=== PATIENT | female | born 1950 ===

== ENCOUNTER 2018-05-07 08:18 | Emergency (ER) | payer MEDICARE, BC ==
[2018-05-07] MEDS ORDERED: traMADol TAB* 50 MG PO ONE (08:34)
--- NOTE | 2018-05-07 09:08 | RAD ---
Indication: Back injury after fall. CT of the lumbar spine was obtained in the axial plane. Sagittal and coronal reconstructed images were obtained. Diffuse osteopenia is noted. The lumbar spine demonstrate vertebral bodies to be normal in height and alignment. No compression fracture is noted. There is compression fracture of the superior aspect of the T12 vertebra with approximately 25% compression. A small retropulsed fragment is noted encroaching upon the spinal canal with retropulsion of 4 mm of the posterior bony fragment. A small amount of perivertebral hematoma is noted. At L2-L3 there is broad-based protrusion flattening the thecal sac. No central or foraminal stenosis is noted. Minimal broad-based effusions are noted at L3-L4, L4-L5 and L5-S1 without definite evidence of spinal stenosis or foraminal stenosis. IMPRESSION: Compression fracture superior endplate of T12 with comminuted fragments. The compression is less than 25%. There is a retropulsed fragment of approximately 4 mm of the posterior margin of the vertebral body superiorly at T12.
--- NOTE | 2018-05-07 09:12 | RAD ---
Indication: Back pain after fall. CT of the thoracic spine was obtained in the axial plane. Sagittal and coronal reconstructed images were obtained. Again noted is a less than 25% compression fracture of the superior endplate of T12. Again noted is 4 mm retropulsion of the superior posterior margin of the vertebral body to the thecal sac. The remainder of the vertebra demonstrates normal height. Multiple levels of degenerative disc disease is noted. No other fractures are noted. The lung ku demonstrate dependent changes without focal nodules or masses. IMPRESSION: Again noted is compression fracture T12 vertebra with retropulsed fragment of approximately 4 mm in the superior endplate. The remainder of the thoracic spine demonstrates no evidence of fracture.
[2018-05-07] MEDS ORDERED: Hydrocodone/Acetamin 10/325 1 TAB PO ONE (10:35)
[2018-05-07] MEDS ORDERED: HYDROcodone/ACETAMIN 5-325 MG* 1 TAB PO ONE (10:43)
[2018-05-07 11:02] VITALS: BP 115/68
--- NOTE | 2018-05-07 11:59 | ED ---
Back Pain - HPI Summary HPI Summary: Patient is a 67-year-old female presenting to the ED with mid back pain after falling from a top bunk in an camper this morning. History of sciatica. Patient is visiting from [place]. She did not take any medications [employer]ORNING [employer]. Denies any numbness or tingling in the bilateral lower extremities. Denies any bladder or bowel dysfunction. Denies foot drop. She states she has been otherwise feeling well. Fall occurred approximately 30 minutes MORNING [employer]. She did not ambulate since arriving. - History of Current Complaint Chief Complaint: EDBackInjuryPain Stated Complaint: FELL BACK PAIN Time Seen by Provider: 05/07/18 08:21 Hx Obtained From: Patient Onset/Duration: Sudden Onset Severity Initially: Moderate Severity Currently: Moderate Pain Intensity: 8 Pain Scale Used: 0-10 Numeric Character: Aching Alleviating Symptom(s): Rest, Position Associated Signs And Symptoms: Positive: Other - step off - Risk Factors AAA Risk Factors: Negative TAD Risk Factors: Negative Cauda Equina Risk Factors: Negative Epidural Abscess Risk Factors: Negative - Allergies/Home Medications Allergies/Adverse Reactions: Allergies Allergy/AdvReac Type Severity Reaction Status Date / Time iodine Allergy Unknown Verified 05/07/18 08:30 Reaction Details shellfish derived Allergy Unknown Verified 05/07/18 08:30 Reaction Details Home Medications: Home Medications Calcium Carbonate [Calcium] 500 mg PO DAILY 05/07/18 [History Confirmed 05/07/18 ] amLODIPine TAB* [Norvasc 5 mg TAB*] 5 mg PO DAILY 05/07/18 [History Confirmed ] PMH/Surg Hx/FS Hx/Imm Hx Previously Healthy: Yes - Immunization History Hx Pertussis Vaccination: No Immunizations Up to Date: Unable to Obtain/Confirm Infectious Disease History: No Infectious Disease History: Denies: Traveled Outside the [place] in Last 30 Days - Social History Occupation: Unemployed Lives: With Family Alcohol Use: None Hx Substance Use: No Substance Use Type: Reports: None Hx Tobacco Use: No Smoking Status (MU): Never Smoked Tobacco Review of Systems Constitutional: Negative Negative: Fever, Chills, Skin Diaphoresis Negative: Palpitations, Chest Pain Negative: Shortness Of Breath, Cough Gastrointestinal: Negative Negative: Abdominal Pain, Vomiting, Diarrhea, Nausea Genitourinary: Negative Positive: no symptoms reported, see HPI Positive: Arthralgia. Negative: Myalgia, Decreased ROM, Edema Skin: Negative Neurological: Negative All Other Systems Reviewed And Are Negative: Yes Physical Exam Triage Information Reviewed: Yes Vital Signs On Initial Exam: Initial Vitals Pulse BP Pulse Ox 80 158/87 96 05/07/18 08:27 05/07/18 08:27 05/07/18 08:27 Vital Signs Reviewed: Yes Appearance: Positive: Well-Appearing, Well-Nourished Skin: Positive: Warm, Skin Color Reflects Adequate Perfusion Eyes: Positive: EOMI, JAMES, Conjunctiva Clear Neck: Positive: Supple, No Lymphadenopathy Respiratory/Lung Sounds: Positive: Clear to Auscultation, Breath Sounds Present Cardiovascular: Positive: RRR, Pulses are Symmetrical in both Upper and Lower Extremities Musculoskeletal: Positive: Pain @ - t12 Neurological: Positive: Sensory/Motor Intact, Alert, Oriented to Person Place, Time, Reflexes Intact, Normal Gait, Speech Normal Psychiatric: Positive: Normal, Affect/Mood Appropriate AVPU Assessment: Alert - is Diagnostics - Vital Signs Vital Signs Temp Pulse Resp BP Pulse Ox 05/07/18 11:01 98.7 F 81 16 115/68 98 05/07/18 09:28 81 115/69 97 05/07/18 09:01 79 100 05/07/18 08:59 81 129/87 97 05/07/18 08:37 80 97 05/07/18 08:28 98.2 F 81 16 158/87 97 05/07/18 08:27 80 158/87 96 - Laboratory Lab Statement: Any lab studies that have been ordered have been reviewed, and results considered in the medical decision making process. Back Pain Course/Dx - Course Course Of Treatment: During the course of treatment, the patient's evaluated for mid back pain. Step-off noted at T11-T12. No history of prior back surgeries. CT lumbar and thoracic spine obtained: IMPRESSION: Compression fracture superior endplate of T12 with comminuted fragments. The. compression is less than 25%. There is a retropulsed fragment of approximately 4 mm of the. posterior margin of the vertebral body superiorly at T12. She is given tramadol on arrival with some mild amount of relief. Patient is able to ambulate, however with pain. She's been given 2 hydrocodone's with significant improvement. Family is at bedside and is willing to take care of her. They will follow up with neurosurgery in [place] early next week. She is given a 5 day supply of pain control for at home as well as encouraged to use moist heat. - Diagnoses Differential Diagnosis/HQI/PQRI: Positive: Cauda Equina Syndrome, Compressive Cord Syndrome, Herniated Disc, Strain, Sprain Provider Diagnoses: T12 compression fracture Discharge - Sign-Out/Discharge Documenting (check all that apply): Patient Departure - Discharge Plan Condition: Stable Disposition: HOME Prescriptions: oxyCODONE/Acetamin 10/325(NF) [Percocet 10/325 (NF)] 1 tab PO Q6H #20 tab MDD 4 Patient Education Materials: Vertebral Compression Fracture (ED) Referrals: No Primary Care Phys,NOPCP [Primary Care Provider] - Additional Instructions: Please follow up with your neurosurgeon Hydrocodone/acetaminophen up to every 6 hours or 4 times daily as needed for pain Ibuprofen 400mg 3 times daily for pain Use these intermittently Moist heat to the area - Billing Disposition and Condition Condition: STABLE Disposition: Home
== END 2018-05-07 11:01 | disposition home or self-care (01) ==
LOC: ED 08:18
DX: S22.089A Unspecified fracture of T11-T12 vertebra, initial encounter for closed fracture (principal); W06.XXXA Fall from bed, initial encounter; Y92.818 Other transport vehicle as the place of occurrence of the external cause; Z88.8 Allergy status to other drugs, medicaments and biological substances
CPT/HCPCS: 72128; 72131; 99283; A9270-GY